=== PATIENT | female | born 1955 | race African-American/Black ===

== ENCOUNTER 2018-12-22 13:26 | Inpatient (IN) | payer BC, OTHER ==
[2018-12-22 14:50] VITALS: BMI 28.2
--- NOTE | 2018-12-22 16:28 | HP ---
CIWA Score - Admission Criteria OASAS Guidelines: Admission for Medically Managed Detox: Requires at least one of the followin. CIWA greater than 12 2. Seizures within the past 24 hours 3. Delirium tremens within the past 24 hours 4. Hallucinations within the past 24 hours 5. Acute intervention needed for co occurring medical disorder 6. Acute intervention needed for co occurring psychiatric disorder 7. Severe withdrawal that cannot be handled at a lower level of care (continued vomiting, continued diarrhea, abnormal vital signs) requiring intravenous medication and/or fluids 8. Admission ROS [facility] - HPI Chief Complaint: Here for rehab. To get stable. Allergies/Adverse Reactions: Allergies Allergy/AdvReac Type Severity Reaction Status Date / Time Fish Containing Products Allergy Severe Difficulty Verified 12/22/18 14:39 Breathing No Known Drug Allergies Allergy Verified 12/22/18 17:19 History of Present Illness: First admission for this 63 yo who presents w/ a hx of poly-substance abuse, post 5 day detox at [facility] discharged today and seeking rehab. CXRay in [facility] [place]: Neg - 11/2018. Heroin use began at age 61. Nasal. Was using about 10 bags/day. Last use . Crack/Cocaine use began at age 30. Smoked daily. Last use 12/15/18. Marijuana use began at age 16. Smoked daily. Last use 12/17/18. Alcohol use began at age 6. Was drinking 1 qt liquor daily. Last use 12/16/18. Nicotine use began at age [age]. Smokes 1PPD. Denies hx seizures, blackouts, or overdoses. Has a Narcan kit. PMHx: HTN: Herniated discs w/ LBP; (R) knee pain. MHHx: Anxiety and Depression. Denies thoughts of harming self or others. Encouraged to make an appt w/ MH Provider while in rehab for follow-up post discharge. SHx: Undomiciled. Retired. Patient Name: An Figueroa Date: 1955 Address: [address] [place] [address] Sex: Female Rx Written Rx Dispensed Drug Quantity Days Supply Prescriber Name 12/31/2017 01/16/2018 oxycodone hcl 20 mg tablet 90 30 Fernando Schultz MD Search Terms: An Figueroa, 1955 Search Date: 12/22/2018 05:08:38 PM States Searched: [place], [place], [place], [place], [place], [place], [place] The Drug Utilization Report below displays the controlled substance prescriptions, if any, that were dispensed in the indicated state(s). The information displayed on this report is compiled from requests submitted to other states' PMPs, and accurately reflects the information as returned by them. Blank hall indicate data not provided by other state. This report was requested by: Marcy Salgado | Reference #: [id number] Exam Limitations: No Limitations - Ebola screening Have you traveled outside of the country in the last 21 days: No Have you had contact with anyone from an Ebola affected area: No Have you been sick,other than usual withdrawal symptoms: No Do you have a fever: No - Review of Systems Constitutional: Diaphoresis (At night), Changes in sleep (Difficulty staying asleep) EENT: reports: Blurred Vision, Dental Problems (Missing teeth. No pain. Chews and swallows ok.), Other (Post-nasal drip) Respiratory: reports: No Symptoms reported Cardiac: reports: No Symptoms Reported GI: reports: Indigestion (Heart burn w/ certain foods) : reports: No Symptoms Reported Musculoskeletal: reports: Back Pain (Chronic LB tight pain. Discomfot ="6/10 "Increases w/ standing and turning in certain positions. Improves w/ resting.), Joint Pain (Hx: (R) knee, ususally sharp pain: Now is a "5". Increases w/ standing. Improves w/ laying down.), Other (Uses a cane for support.) Integumentary: reports: No Symptoms Reported Neuro: reports: Unsteady Gait (Uses a cane for support.) Endocrine: reports: No Symptoms Reported Hematology: reports: No Symptoms Reported Psychiatric: reports: Judgement Intact, Orientated x3, Anxious, Depressed ( Denies thoughts of harming self or others) Patient History - PPD History Previous Implant?: Yes Documented Results: Negative w/o proof Implanted On Prior [facility] Admission?: No PPD to be Administered?: Yes - Reproductive History Patient is a Female of Child Bearing Age (11 -55 yrs old): No - Smoking Cessation Smoking history: Current every day smoker Have you smoked in the past 12 months: Yes Aproximately how many cigarettes per day: 20 Hx Chewing Tobacco Use: Yes Initiated information on smoking cessation: No 'Breaking Loose' booklet given: 12/22/18 - Substance & Tx. History Hx Alcohol Use: Yes Hx Substance Use: Yes Substance Use Type: Alcohol, Cocaine, Heroin, Marijuana Hx Substance Use Treatment: Yes (detox, rehabs, past MMTP (5 mths ago)) - Substances abused Alcohol Substance route: Oral Frequency: Daily Amount used: 1 qt vodka Age of first use: 6 Date of last use: 12/16/18 Crack Substance route: Smoking Frequency: Daily Amount used: $100 Age of first use: 30 Date of last use: 12/15/18 Marijuana/Hashish Substance route: Smoking Frequency: Daily Amount used: $25 Age of first use: 16 Date of last use: 12/17/18 Heroin Substance route: Inhalation Frequency: No use in 30 days Amount used: 10 bags Age of first use: 61 Date of last use: 11/20/18 Admission Physical Exam [facility] - Vital Signs Vital Signs: Vital Signs - 24 hr 12/22/18 14:44 Temperature 97.9 F Pulse Rate 64 Respiratory 18 Rate Blood Pressure 147/72 - Physical General Appearance: Yes: Nourished, Anxious HEENTM: Yes: EOMI, Hearing grossly Normal, Normal ENT Inspection, Normocephalic , Normal Voice, ELDA, Pharynx Normal Respiratory: Yes: Lungs Clear (Pulse Ox = 99 %), Normal Breath Sounds, No Respiratory Distress, Other (Cough productive of thick grayish phlegm.) Neck: Yes: No masses,lesions,Nodules, Supple Breast: Yes: Breast Exam Deferred Cardiology: Yes: Regular Rhythm, S1, S2, Bradycardia (HR: 56) Abdominal: Yes: Non Tender, Soft, Increased Bowel Sounds Genitourinary: Yes: Within Normal Limits Back: Yes: Normal Inspection Musculoskeletal: Yes: Gait Steady (w/ use of cane), Joint Stiffness ((R) knee stiffness. No swelling.) Extremities: Yes: Normal Capillary Refill Neurological: Yes: control specialist II-XII NML intact, Fully Oriented, Alert, Motor Strength 5/5, Normal Mood/Affect, Normal Response Integumentary: Yes: Normal Color, Dry, Warm Lymphatic: Yes: Within Normal Limits - Diagnostic (1) Heroin use disorder, moderate, in early remission Current Visit: Yes Status: Acute (2) Alcohol use disorder, moderate, in early remission Current Visit: Yes Status: Acute (3) Cocaine use disorder, moderate, in early remission Current Visit: Yes Status: Acute (4) Moderate cannabis dependence in early remission Current Visit: Yes Status: Acute (5) Nicotine dependence, uncomplicated Current Visit: Yes Status: Chronic Qualifiers: Nicotine product type: cigarettes Qualified Code(s): F17.210 - Nicotine dependence, cigarettes, uncomplicated (6) Essential (primary) hypertension Current Visit: Yes Status: Acute (7) History of low back pain Current Visit: Yes Status: Chronic (8) Cough Current Visit: Yes Status: Chronic Comment: Pulse Ox = 99%. Afebrile. No SOB /wheeze. (9) Chronic pain of right knee Current Visit: Yes Status: Chronic Cleared for Admission [facility] - Detox or Rehab Claeared for Rehab Admission: Yes Breathalyzer - Breathalyzer Breathalyzer: 0 Urine Drug Screen - Test Device Lot number: [id number] Expiration date: 08/22/20 - Control Is test valid?: Yes - Results Drug screen NEGATIVE: No Urine drug screen results: BZO-Benzodiazepines Inpatient Rehab Admission - Rehab Decision to Admit Inpatient rehab admission?: Yes - Initial Determination Are CD services needed?: Yes Free of communicable disease: Yes Not in need of hospitalization: Yes - Rehab Admission Criteria Previous failed treatment: Yes Poor recovery environment: Yes Comorbidities: Yes Lacks judgement: Yes Patient is meeting Inpatient Rehab admission criteria:: Yes
[2018-12-22] MEDS ORDERED: MENTHOL/PHENOL 1 EACH UD MM PRN (17:09)
[2018-12-22] MEDS ORDERED: MAGNESIUM HYDROX 2400MG/30ML ORAL SUSPENSION 30 ML CUP PO PRN (17:09)
[2018-12-22] MEDS ORDERED: MAGNESIUM CITRATE 300 ML BOTTLE PO PRN (17:09)
[2018-12-22] MEDS ORDERED: NICOTINE POLACRILEX 2 MG GUM BC PRN (17:09)
[2018-12-22] MEDS ORDERED: LOPERAMIDE HCL 2 MG CAPSULE PO PRN (17:09)
[2018-12-22] MEDS ORDERED: ACETAMINOPHEN 325 MG TABLET (FP) PO PRN (17:09)
[2018-12-22] MEDS ORDERED: P-EPHED 60MG/TRIPROLIDI 2.5MG TABLET PO PRN (17:09)
[2018-12-22] MEDS ORDERED: MAG HYDROX/AL HYDROX/SIMETH 30 ML UNIT-DOSE CUP PO PRN (17:09)
[2018-12-22] MEDS ORDERED: guaiFENesin 200 MG/10 ML 10 ML UNIT-DOSE CUPS PO SCH (17:15)
[2018-12-22] MEDS: THIAMINE HCL 100 MG TABLET (FP) PO SCH (21:33)
[2018-12-23] MEDS: guaiFENesin 200 MG/10 ML 10 ML UNIT-DOSE CUPS PO SCH ×5 (00:49→23:06)
[2018-12-23] MEDS: NICOTINE 14 MG/24 HOURS TOPICAL PATCH TD SCH (09:40)
[2018-12-23] MEDS: PRENATAL VITAMINS W/ FOLIC ACID TABLET (FP) PO SCH (09:40)
[2018-12-23] MEDS ORDERED: amLODIPine BESYLATE 10 MG TABLET (FP) PO SCH (10:00)
--- NOTE | 2018-12-23 10:14 | EKG ---
Test Reason : Blood Pressure : / mmHG Vent. Rate : 053 BPM Atrial Rate : 053 BPM P-R Int : 152 ms QRS Dur : 086 ms QT Int : 484 ms P-R-T Axes : 058 059 059 degrees QTc Int : 454 ms SINUS BRADYCARDIA OTHERWISE NORMAL ECG NO PREVIOUS ECGS AVAILABLE Confirmed by Zachary Vera MD ([id number]) on 12/23/2018 10:14:08 AM Referred By: Confirmed By:Zachary Vera MD
--- NOTE | 2018-12-23 10:26 | PN ---
[facility] Progress Note Note: Pt has a h/o HTN. Was not taking medications for the last 2 years- thinks it was norvasc. Was also on Lisinopril in the past- lost weight and so had meds adjusted. will start on Norvasc 5mg and go up on dose and will add other meds as needed Vital Signs - 24 hr 12/22/18 12/23/18 12/23/18 14:44 00:30 03:30 Temperature 97.9 F Pulse Rate 64 Respiratory 18 18 18 Rate Blood Pressure 147/72 12/23/18 12/23/18 06:38 06:54 Temperature 98.3 F 98.3 F Pulse Rate 54 L 54 L Respiratory 18 18 Rate Blood Pressure 170/80 170/80
[2018-12-23] MEDS ORDERED: amLODIPine BESYLATE 5 MG TABLET (FP) PO SCH (10:30)
[2018-12-23 12:10] LABS: HEMATOCRIT 40.9 % (32.4-45.2); HEMOGLOBIN 14.1 GM/dL (10.7-15.3); MCH 33.5 pg (25.7-33.7); MCHC 34.4 g/dl (32.0-36.0); MEAN CELL VOLUME 97.2 fl (80-96); MEAN PLT VOLUME 7.1 fl (7.5-11.1); PLATELET COUNT 297 K/MM3 (134-434); RDW 13.7 % (11.6-15.6); WHITE BLOOD COUNT 7.4 K/mm3 (4.0-10.0)
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
[2018-12-23 12:25] LABS: BILIRUBIN,TOTAL 0.6 mg/dL (0.2-1); BLOOD UREA NITROGEN 14.8 mg/dL (7-18); CALCIUM 9.2 mg/dL (8.5-10.1); CREATININE 0.6 mg/dL (0.55-1.3); TOT PROT 7.4 g/dl (6.4-8.2)
[2018-12-23] MEDS ORDERED: amLODIPine BESYLATE 5 MG TABLET (FP) PO ONE (14:51)
[2018-12-23] MEDS: hydrOXYzine PAMOATE 25 MG CAPSULE (FP) PO PRN (15:18)
[2018-12-23] MEDS ORDERED: COLLOIDAL OATMEAL 1 BAR EACH TP PRN (15:21)
[2018-12-23 15:52] LABS: PH,URINE 7.5 (5.0-8.0); URINE APPEARANCE CLEAR; URINE BILIRUBIN NEGATIVE (NEGATIVE); URINE COLOR YELLOW; URINE GLUCOSE (UA) NEGATIVE (NEGATIVE); URINE KETONE NEGATIVE (NEGATIVE); URINE LEUK ESTERASE NEGATIVE (NEGATIVE); URINE NITRITE NEGATIVE (NEGATIVE); URINE PROTEIN NEGATIVE (NEGATIVE); URINE UROBILINOGEN 0.2 mg/dL (0.2-1.0)
[2018-12-23] MEDS ORDERED: COLLOIDAL OATMEAL 1 BAR EACH TP ONE (18:26)
[2018-12-23] MEDS: AMMONIUM LACTATE 12% LOTION 225 GM BOTTLE TP SCH (18:26)
[2018-12-23] MEDS: THIAMINE HCL 100 MG TABLET (FP) PO SCH (21:17)
[2018-12-23] MEDS: MELATONIN 5 MG TABLETS PO PRN (21:17)
[2018-12-23] MEDS ORDERED: cloNIDine HCL 0.1 MG TABLET ONE (23:05)
[2018-12-23] MEDS: cloNIDine HCL 0.1 MG TABLET PO PRN (23:05)
[2018-12-24] MEDS: cloNIDine HCL 0.1 MG TABLET PO PRN ×2 (06:38→21:21)
[2018-12-24] MEDS: guaiFENesin 200 MG/10 ML 10 ML UNIT-DOSE CUPS PO SCH (06:38)
[2018-12-24] MEDS ORDERED: PT OWN MED DRAWER 7, Y5N ONE ×2 (08:34→10:15)
[2018-12-24] MEDS: PRENATAL VITAMINS W/ FOLIC ACID TABLET (FP) PO SCH (09:38)
[2018-12-24] MEDS: NICOTINE 14 MG/24 HOURS TOPICAL PATCH TD SCH (09:38)
[2018-12-24] MEDS: AMMONIUM LACTATE 12% LOTION 225 GM BOTTLE TP SCH (09:38)
[2018-12-24] MEDS: amLODIPine BESYLATE 10 MG TABLET (FP) PO SCH (09:39)
[2018-12-24] MEDS: SERTRALINE HCL 50 MG TABLET (FP) PO SCH (09:39)
[2018-12-24] MEDS ORDERED: guaiFENesin 200 MG/10 ML 10 ML UNIT-DOSE CUPS PO PRN (10:06)
[2018-12-24 10:44] LABS: RPR REACTIVE 1:2 (NONREACTIVE)
[2018-12-24 13:00] LABS: TREPONEMA ANTIBODY REACTIVE (NONREACTIVE)
[2018-12-24] MEDS: THIAMINE HCL 100 MG TABLET (FP) PO SCH (21:19)
[2018-12-24] MEDS: hydrOXYzine PAMOATE 25 MG CAPSULE (FP) PO PRN (21:19)
[2018-12-24] MEDS: MELATONIN 5 MG TABLETS PO PRN (21:20)
[2018-12-25] MEDS: cloNIDine HCL 0.1 MG TABLET PO PRN ×2 (06:50→21:07)
[2018-12-25] MEDS ORDERED: PT OWN MED DRAWER 7, Y5N ONE ×3 (08:48→21:51)
[2018-12-25] MEDS: amLODIPine BESYLATE 10 MG TABLET (FP) PO SCH (09:42)
[2018-12-25] MEDS: AMMONIUM LACTATE 12% LOTION 225 GM BOTTLE TP SCH (09:42)
[2018-12-25] MEDS: PRENATAL VITAMINS W/ FOLIC ACID TABLET (FP) PO SCH (09:42)
[2018-12-25] MEDS: NICOTINE 14 MG/24 HOURS TOPICAL PATCH TD SCH (09:43)
[2018-12-25] MEDS: SERTRALINE HCL 50 MG TABLET (FP) PO SCH (09:43)
[2018-12-25] MEDS: hydrOXYzine PAMOATE 25 MG CAPSULE (FP) PO PRN (21:05)
[2018-12-25] MEDS: MELATONIN 5 MG TABLETS PO PRN (21:06)
[2018-12-25] MEDS: THIAMINE HCL 100 MG TABLET (FP) PO SCH (21:06)
[2018-12-26] MEDS: cloNIDine HCL 0.1 MG TABLET PO PRN ×2 (06:20→21:07)
[2018-12-26] MEDS ORDERED: PT OWN MED DRAWER 7, Y5N ONE (08:16)
[2018-12-26] MEDS: PRENATAL VITAMINS W/ FOLIC ACID TABLET (FP) PO SCH (09:36)
[2018-12-26] MEDS: amLODIPine BESYLATE 10 MG TABLET (FP) PO SCH (09:36)
[2018-12-26] MEDS: SERTRALINE HCL 50 MG TABLET (FP) PO SCH (09:36)
[2018-12-26] MEDS: AMMONIUM LACTATE 12% LOTION 225 GM BOTTLE TP SCH (09:37)
[2018-12-26] MEDS: NICOTINE 14 MG/24 HOURS TOPICAL PATCH TD SCH (09:38)
[2018-12-26] MEDS: MELATONIN 5 MG TABLETS PO PRN (21:07)
[2018-12-26] MEDS: hydrOXYzine PAMOATE 25 MG CAPSULE (FP) PO PRN (21:07)
[2018-12-26] MEDS: THIAMINE HCL 100 MG TABLET (FP) PO SCH (21:07)
[2018-12-27] MEDS ORDERED: PT OWN MED DRAWER 7, Y5N ONE (08:05)
[2018-12-27] MEDS: NICOTINE 14 MG/24 HOURS TOPICAL PATCH TD SCH (09:40)
[2018-12-27] MEDS: AMMONIUM LACTATE 12% LOTION 225 GM BOTTLE TP SCH (09:40)
[2018-12-27] MEDS: SERTRALINE HCL 50 MG TABLET (FP) PO SCH (09:41)
[2018-12-27] MEDS: amLODIPine BESYLATE 10 MG TABLET (FP) PO SCH (09:41)
[2018-12-27] MEDS: PRENATAL VITAMINS W/ FOLIC ACID TABLET (FP) PO SCH (09:41)
[2018-12-27] MEDS: IBUPROFEN 400 MG TABLET (FP) PO PRN (09:57)
[2018-12-27] MEDS: THIAMINE HCL 100 MG TABLET (FP) PO SCH (21:45)
[2018-12-27] MEDS: MELATONIN 5 MG TABLETS PO PRN (21:46)
[2018-12-28] MEDS: AMMONIUM LACTATE 12% LOTION 225 GM BOTTLE TP SCH (09:48)
[2018-12-28] MEDS: PRENATAL VITAMINS W/ FOLIC ACID TABLET (FP) PO SCH (09:49)
[2018-12-28] MEDS: amLODIPine BESYLATE 10 MG TABLET (FP) PO SCH (09:49)
[2018-12-28] MEDS: NICOTINE 14 MG/24 HOURS TOPICAL PATCH TD SCH (09:49)
[2018-12-28] MEDS: SERTRALINE HCL 50 MG TABLET (FP) PO SCH (09:49)
[2018-12-28] MEDS: MELATONIN 5 MG TABLETS PO PRN (21:47)
[2018-12-28] MEDS: THIAMINE HCL 100 MG TABLET (FP) PO SCH (21:47)
[2018-12-28] MEDS: cloNIDine HCL 0.1 MG TABLET PO PRN (21:49)
[2018-12-28] MEDS: IBUPROFEN 400 MG TABLET (FP) PO PRN (21:49)
[2018-12-29] MEDS: NICOTINE 14 MG/24 HOURS TOPICAL PATCH TD SCH (09:59)
[2018-12-29] MEDS: AMMONIUM LACTATE 12% LOTION 225 GM BOTTLE TP SCH (09:59)
[2018-12-29] MEDS: amLODIPine BESYLATE 10 MG TABLET (FP) PO SCH (09:59)
[2018-12-29] MEDS: PRENATAL VITAMINS W/ FOLIC ACID TABLET (FP) PO SCH (09:59)
[2018-12-29] MEDS: SERTRALINE HCL 50 MG TABLET (FP) PO SCH (10:00)
[2018-12-29] MEDS: THIAMINE HCL 100 MG TABLET (FP) PO SCH (21:28)
[2018-12-29] MEDS: MELATONIN 5 MG TABLETS PO PRN (21:28)
[2018-12-29] MEDS: IBUPROFEN 400 MG TABLET (FP) PO PRN (21:29)
[2018-12-30] MEDS ORDERED: PT OWN MED DRAWER 7, Y5N ONE (08:54)
[2018-12-30] MEDS: NICOTINE 14 MG/24 HOURS TOPICAL PATCH TD SCH (09:57)
[2018-12-30] MEDS: AMMONIUM LACTATE 12% LOTION 225 GM BOTTLE TP SCH (09:57)
[2018-12-30] MEDS: amLODIPine BESYLATE 10 MG TABLET (FP) PO SCH (09:58)
[2018-12-30] MEDS: SERTRALINE HCL 50 MG TABLET (FP) PO SCH (09:58)
[2018-12-30] MEDS: PRENATAL VITAMINS W/ FOLIC ACID TABLET (FP) PO SCH (09:58)
[2018-12-30] MEDS: THIAMINE HCL 100 MG TABLET (FP) PO SCH (21:26)
[2018-12-30] MEDS: hydrOXYzine PAMOATE 25 MG CAPSULE (FP) PO PRN (21:27)
[2018-12-30] MEDS: cloNIDine HCL 0.1 MG TABLET PO PRN (21:27)
[2018-12-30] MEDS: MELATONIN 5 MG TABLETS PO PRN (21:27)
[2018-12-31] MEDS: amLODIPine BESYLATE 10 MG TABLET (FP) PO SCH (09:49)
[2018-12-31] MEDS: SERTRALINE HCL 50 MG TABLET (FP) PO SCH (09:49)
[2018-12-31] MEDS: PRENATAL VITAMINS W/ FOLIC ACID TABLET (FP) PO SCH (09:49)
[2018-12-31] MEDS: NICOTINE 14 MG/24 HOURS TOPICAL PATCH TD SCH (09:49)
[2018-12-31] MEDS: AMMONIUM LACTATE 12% LOTION 225 GM BOTTLE TP SCH (09:50)
[2018-12-31] MEDS: IBUPROFEN 400 MG TABLET (FP) PO PRN (09:51)
[2018-12-31] MEDS ORDERED: PNEUMOCOCCAL 23 VACCINE 0.5 ML VIAL IM ONE (12:13)
[2018-12-31] MEDS ORDERED: FLU VACCINE QUAD 60 MCG/0.5 ML (MDV 19-20) IM ONE (12:13)
[2018-12-31] MEDS: LIDOCAINE 5% TOPICAL PATCH TP SCH (14:41)
[2018-12-31] MEDS: METHOCARBAMOL 500 MG TABLET PO SCH ×2 (14:41→21:37)
[2018-12-31] MEDS ORDERED: FLU VACC QS2019-20(6MOS UP)/PF 60 MCG/0.5 ML SYRINGE IM ONE (15:56)
[2018-12-31] MEDS: cloNIDine HCL 0.1 MG TABLET PO PRN (21:37)
[2018-12-31] MEDS: MELATONIN 5 MG TABLETS PO PRN (21:38)
[2018-12-31] MEDS: THIAMINE HCL 100 MG TABLET (FP) PO SCH (21:38)
[2018-12-31] MEDS ORDERED: LIDOCAINE PATCH REMOVAL MC SCH (22:00)
[2018-12-31] MEDS: METHYL SALICYLATE/MENTHOL OINT 30 GM TUBE TP SCH (22:54)
[2019-01-01] MEDS: METHOCARBAMOL 500 MG TABLET PO SCH (06:39)
[2019-01-01 07:07] VITALS: TEMP 98
[2019-01-01] MEDS ORDERED: PT OWN MED DRAWER 7, Y5N ONE (08:11)
--- NOTE | 2019-01-01 08:21 | DS ---
[facility] Rehab Discharge Summary - [facility] Rehab Discharge Summary Admission Date: 12/22/18 Discharge Date: 01/01/19 - History Present History: Alcohol dependence, Cocaine dependence, Opioid dependence Pertinent Past History: History of Present Illness: 63 yo w/ a hx of poly-substance abuse,. CXRay in [facility]: Neg - 11/2018. Heroin use began at age 61. Nasal. Was using about 10 bags/day. Last use . Crack/Cocaine use began at age 30. Smoked daily. Last use 12/15/18. Marijuana use began at age 16. Smoked daily. Last use 12/17/18. Alcohol use began at age 6. Was drinking 1 qt liquor daily. Last use 12/16/18. Nicotine use began at age [age]. Smokes 1PPD. Denies hx seizures, blackouts, or overdoses. Has a Narcan kit. PMHx: HTN: Herniated discs w/ LBP; (R) knee pain. MHHx: Anxiety and Depression. Denies thoughts of harming self or others. SHx: Undomiciled. Retired. - Discharge Physical Exam Vital Signs: Vital Signs Temperature 98.0 F 01/01/19 07:05 Pulse Rate 56 L 01/01/19 07:05 Respiratory Rate 16 01/01/19 07:05 Blood Pressure 148/73 01/01/19 07:05 O2 Sat by Pulse Oximetry (%) Pertinent Admission Physical Exam Findings: - Physical General Appearance: No apparent distress HEENTM: EOMI, Normocephalic, ELDA, Respiratory: Lungs Clear Neck: Supple Cardiology:S1, S2, Abdominal: Non Tender, Soft, +Bowel Sounds Musculoskeletal: Gait Steady w/ use of cane Neurological: quality assurance technician II-XII NML intact,Motor Strength 5/5 Integumentary: Color consistent throughout trunk and extremities, good skin turgor - Treatment Discharge Condition: Outpatient referral accepted (Patient has referral to [facility]. Medically stable for discharge.) Hospital Course: patient attended groups, had 1:1 with her counselor, was seen by psychiatric provider, and was adherent to her treatment plan and medication regimen. Patient had no acute or urgent medical problems during her time in rehab. - Medication Discharge Medications: Ambulatory Orders Sertraline HCl [Zoloft -] 50 mg PO DAILY 12/22/18 Zolpidem Tartrate [Ambien] 10 mg PO PRN 12/22/18 Multivitamin [One-Daily Multi-Vitamin] 1 tab PO DAILY #30 tablet 01/01/19 - Medication-Assisted Treatment (MAT) Medication-Assisted Treatment (MAT): No - Discharge Instructions Diet, activity, other medical instructions: Diet: as tolerated Activity: as tolerated Other medical instructions: Please keep aftercare referral. - Diagnosis (1) Alcohol dependence Current Visit: Yes Status: Chronic Qualifiers: Substance use status: uncomplicated Qualified Code(s): F10.20 - Alcohol dependence, uncomplicated (2) Cocaine use disorder, moderate, in early remission Current Visit: Yes Status: Chronic (3) Heroin use disorder, moderate, in early remission Current Visit: Yes Status: Chronic - Follow-up Referral Minutes to complete discharge: 20 - AMA Did Patient Leave Against Medical Advice: No
[2019-01-01 09:16] VITALS: BP 117/66; PULSE 57
[2019-01-01] MEDS: LIDOCAINE 5% TOPICAL PATCH TP SCH (09:51)
[2019-01-01] MEDS: METHYL SALICYLATE/MENTHOL OINT 30 GM TUBE TP SCH (09:51)
[2019-01-01] MEDS: AMMONIUM LACTATE 12% LOTION 225 GM BOTTLE TP SCH (09:51)
[2019-01-01] MEDS: amLODIPine BESYLATE 10 MG TABLET (FP) PO SCH (09:52)
[2019-01-01] MEDS: PRENATAL VITAMINS W/ FOLIC ACID TABLET (FP) PO SCH (09:52)
[2019-01-01] MEDS: SERTRALINE HCL 50 MG TABLET (FP) PO SCH (09:52)
[2019-01-01] MEDS: NICOTINE 14 MG/24 HOURS TOPICAL PATCH TD SCH (09:53)
[2019-01-01] MEDS: hydrOXYzine PAMOATE 25 MG CAPSULE (FP) PO PRN (09:53)
== END 2019-01-01 10:18 | disposition home or self-care (01) | DRG 895 ==
LOC: YASAS 13:26 → Y3E 17:32
PROVIDERS: ADMIT Neuromusculoskeletal Medicine & OMM; ATTEND Neuromusculoskeletal Medicine & OMM
PROC: HZ42ZZZ Group Counseling for Substance Abuse Treatment, Cognitive-Behavioral (ICD-10-PCS; principal; 2018-12-22)
DX: F10.20 Alcohol dependence, uncomplicated (principal); F11.20 Opioid dependence, uncomplicated; F14.20 Cocaine dependence, uncomplicated; F12.20 Cannabis dependence, uncomplicated; F17.210 Nicotine dependence, cigarettes, uncomplicated; F32.9 Major depressive disorder, single episode, unspecified; I10 Essential (primary) hypertension; M54.5 Low back pain; M25.561 Pain in right knee; G89.29 Other chronic pain; R05 Cough; Z91.013 Allergy to seafood
CPT/HCPCS: 36415; 80053; 81003; 85027; 86593; 86780; 93005; 93010; J0735